=== PATIENT | male | born 1990 | race American Indian/Alaskan Native ===

== ENCOUNTER 2021-05-20 05:03 | Inpatient (IN) | payer SELFPAY ==
[2021-05-20 05:42] LABS: Basophils # (Auto) 0.1 K/mm3 (0.0-0.1); Basophils % (Auto) 0.9 % (0.0-1.8); Eosinophils # (Auto) 0.2 K/mm3 (0.0-0.4); Eosinophils % (Auto) 2.1 % (0.0-4.3); Hematocrit 41.5 % (35.5-45.6); Hemoglobin 14.2 gm/dl (11.8-15.2); Lymphocytes # (Auto) 2.1 K/mm3 (1.2-5.4); Lymphocytes % (Auto) 18.3 % (13.4-35.0); Mean Corpuscular HGB Conc 34 % (32-34); Mean Corpuscular Volume 82 fl (84-94); Monocytes # (Auto) 0.9 K/mm3 (0.0-0.8); Monocytes % (Auto) 7.9 % (0.0-7.3); Red Blood Count 5.05 M/mm3 (3.65-5.03); Red Cell Distribution Width 14.1 % (13.2-15.2)
[2021-05-20 05:43] LABS: Platelet Count 218 K/mm3 (140-440)
[2021-05-20 06:04] LABS: Alanine Aminotransferase 129 units/L (7-56); Albumin 4.5 g/dL (3.9-5); BUN/Creatinine Ratio 9; Blood Urea Nitrogen 12 mg/dL (9-20); Calcium 9.6 mg/dL (8.4-10.2); Hemolysis Index 2
--- NOTE | 2021-05-20 06:14 | XRay Report ---
CHEST 2 VIEWS INDICATION / CLINICAL INFORMATION: Chest Pain. COMPARISON: None available. FINDINGS: SUPPORT DEVICES: None. HEART / MEDIASTINUM: No significant abnormality. LUNGS / PLEURA: No significant pulmonary or pleural abnormality. No pneumothorax. ADDITIONAL FINDINGS: No significant additional findings. IMPRESSION: 1. No acute findings. Signer Name: Steven Segura MD Signed: 05/20/2021 6:10 AM Workstation Name: [id number]
[2021-05-20] MEDS ORDERED: oxyCODONE /ACETAMINOPHEN 5-325MG TAB PO ONE (06:55)
--- NOTE | 2021-05-20 07:07 | Emergency Department Report ---
ED Chest Pain HPI - General Chief Complaint: Chest Pain Stated Complaint: CHEST PAIN/SOB Time Seen by Provider: 05/20/21 06:39 Source: patient Mode of arrival: Ambulatory Limitations: No Limitations - History of Present Illness Initial Comments: 31-year-old -Gabonese male presents to the emergency department with a complaint of shortness of breath that worsens with exertion, and left-sided chest and flank pain. Patient says that he has been having shortness of breath with exercise, that is abnormal for him, over the past few weeks. Over the past week the patient has developed the chest and upper flank discomfort. The patient has a history of pulmonary embolism x3 but admits to noncompliance with anticoagulation and outpatient follow-up. He has never had an evaluation for a possible clotting disorder. He denies any tobacco use, illicit drug use, or alcohol use/abuse. He has not taken anything for his symptoms prior to presentation today. He denies any fever, cough, lower extremity swelling. No recent travel or sick contacts at home. Severity scale (0 -10): 10 - Related Data Home Medications Medication Instructions Recorded Confirmed Last Taken No Known Home Medications [No 05/20/21 05/20/21 Unknown Reported Home Medications] Allergies Allergy/AdvReac Type Severity Reaction Status Date / Time No Known Allergies Allergy Verified 05/20/21 05:18 Heart Score - HEART Score History: Slightly suspicious EKG: Non-specific Age: < 45 Risk factors: No known risk factors Troponin: < normal limit HEART Score: 1 - EKG Read Time Time EKG Completed: 05:07 EKG Read Time: 05:09 - Critical Actions Critical Actions: 0-3 pts:0.9-1.7%risk of adverse cardiac event.Candidate for discharge ED Review of Systems ROS: Stated complaint: CHEST PAIN/SOB Other details as noted in HPI Comment: All other systems reviewed and negative Constitutional: denies: chills, fever Eyes: denies: eye pain, vision change ENT: denies: ear pain, throat pain Respiratory: shortness of breath, SOB with exertion. denies: cough, orthopnea Cardiovascular: chest pain. denies: palpitations, edema Gastrointestinal: denies: nausea, vomiting Genitourinary: denies: dysuria, discharge Musculoskeletal: denies: back pain, arthralgia Skin: denies: rash, lesions Neurological: denies: headache, weakness ED Past Medical Hx - Past Medical History Previous Medical History?: Yes Additional medical history: PE X 3 - Surgical History Past Surgical History?: No - Medications Home Medications: Home Medications Medication Instructions Recorded Confirmed Last Taken Type No Known Home Medications [No 05/20/21 05/20/21 Unknown History Reported Home Medications] ED Physical Exam - General Limitations: No Limitations - Other Other exam information: GENERAL: The patient is well-developed well-nourished. HENT: Normocephalic. Atraumatic. Patient has moist mucous membranes. EYES: Extraocular motions are intact. NECK: Supple. Trachea is midline. CHEST/LUNGS: Clear to auscultation. No tachypnea or accessory muscle use. There is some reproducible left-sided chest wall tenderness to palpation without crepitus or deformity. HEART/CARDIOVASCULAR: Regular. There is mild tachycardia. There is no murmur. ABDOMEN: Abdomen is soft, nontender. Patient has normal bowel sounds. Obese habitus. SKIN: Skin is warm and dry. NEURO: The patient is awake, alert, and oriented. The patient is cooperative. The patient has no focal neurologic deficits. Normal speech. MUSCULOSKELETAL: There is no tenderness or deformity. There is no limitation range of motion. ED Course Vital Signs 05/20/21 05/20/21 05:15 09:18 Temperature 98.1 F Pulse Rate 113 H Respiratory 16 Rate Blood Pressure 112/72 [Right] O2 Sat by Pulse 94 98 Oximetry - Consultations Consultation #1: 05/20/21 09:[address] Quintero, vascular surgeon on-call, who says that he will evaluate the patient. NPO and IV Heparin for now. MICHEL score - Michel Score Age > 65: (0) No Aspirin use within the Past 7 Days: (0) No 3 or more CAD Risk Factors: (0) No 2 or more Angina events in past 24 hrs: (1) Yes Known CAD with more than 50% Stenosis: (0) No Elevated Cardiac Markers: (0) No ST Deviation Greater than 0.5mm: (0) No MICHEL Score: 1 ED Medical Decision Making - Lab Data Result diagrams: 05/20/21 Unknown 05/20/21 Unknown Lab Results 05/20/21 Range/Units 08:16 PT 14.1 (12.2-14.9) Sec. INR 0.98 (0.87-1.13) APTT 24.3 (24.2-36.6) Sec. Lab Results 05/20/21 Range/Units 08:16 PT 14.1 (12.2-14.9) Sec. INR 0.98 (0.87-1.13) APTT 24.3 (24.2-36.6) Sec. - EKG Data -: EKG Interpreted by Me EKG shows normal: sinus rhythm, axis, intervals, QRS complexes, ST-T waves (To move versions to the anteroseptal leads) Rate: tachycardia (111 bpm) - EKG Data When compared to previous EKG there are: previous EKG unavailable Interpretation: other (Sinus tachycardia 111 bpm, normal axis, normal intervals, T wave inversions to the anteroseptal leads. No ST elevation [place]) - Radiology Data Radiology results: report reviewed, image reviewed interpreted by me: Chest x-ray does not show any acute process. There are no pleural effusions, obvious pneumonia and there is no pneumothorax. CTA CHEST WITH CONTRAST INDICATION : Patient complains of chest pain, elevated D-dimer 100 ml omni 350 . TECHNIQUE: Axial imaging performed through the chest, with contrast bolus timing set to maximize opacification of the pulmonary arteries. Sagittal and coronal reformatted images. 3-plane MIP reformatted images were obtained. All CT scans at this location are performed using CT dose reduction for ALARA by means of automated exposure control. 100 mL of intravenous contrast administered. COMPARISON: None FINDINGS: Bolus: Contrast bolus timing is adequate. PTE: Bilateral pulmonary emboli are identified. There is moderate to large occlusive thrombus extending from the distal left main pulmonary artery to all lobes of the left lower lobe. Nonocclusive thrombus is identified in the second and third order branches leading to the right lower lobe and right upper lobe. Mediastinum: Heart size is within normal limits. The right ventricle is mildly dilated consistent with right heart strain. No pericardial effusion. The thoracic aorta and remaining mediastinal structures are unremarkable. No pathologic mediastinal adenopathy. Lungs: There is minimal patchy subpleural infiltration in the posterior left lower lobe. Otherwise the lungs are clear. Small layering left pleural effusion measures up to 1 cm in thickness. No pneumothorax. Bones: No significant abnormality. Upper abdomen: Moderate to severe diffuse fatty infiltration the liver is noted in the visualized upper abdomen. IMPRESSION: Positive for bilateral pulmonary emboli as described. Thrombus burden appears moderate with signs of right heart strain. Patchy infiltration in the left lower lobe and small left pleural effusion. Hepatic steatosis. - Medical Decision Making This patient presents with shortness of breath with exertion, left-sided chest and upper flank pain. He has a history of multiple previous PEs and is nonc ompliant with anticoagulation and outpatient follow-up. Labs have been mostly unremarkable except for a very elevated D-dimer level. The patient had a CT angiography of the chest that shows bilateral pulmonary embolism with a moderate to large clot burden and some mild right-sided heart strain. Vascular surgery contacted and consulted and the patient will go for an IVC filter. The patient will be admitted to the hospitalist service on a heparin drip and was accepted by Dr. Malloy. Critical Care Time: Yes Critical care time in (mins) excluding proc time.: 31 Critical care attestation.: If time is entered above; I have spent that time in minutes in the direct care of this critically ill patient, excluding procedure time. Critical care time was spent on this patient in doing his initial evaluation, multiple reevaluations, ordering and interpretation of labs and imaging, discussion with the radiologist, discussion with vascular surgery, IV heparin for anticoagulation of the bilateral pulmonary emboli, multiple discussions with the patient. Critical Care Time: 31 minutes ED Disposition Clinical Impression: Bilateral pulmonary embolism Disposition: ADMITTED INPATIENT Is pt being admited?: Yes Condition: Serious Time of Disposition: 08:51
[2021-05-20] MEDS ORDERED: HEPARIN 10,000 UNITS/10 ML VIAL IV ONE (08:06)
--- NOTE | 2021-05-20 08:08 | Cat Scan Report ---
CTA CHEST WITH CONTRAST INDICATION : Patient complains of chest pain, elevated D-dimer 100 ml omni 350 . TECHNIQUE: Axial imaging performed through the chest, with contrast bolus timing set to maximize opa cification of the pulmonary arteries. Sagittal and coronal reformatted images. 3-plane MIP reformatte d images were obtained. All CT scans at this location are performed using CT dose reduction for ALAR A by means of automated exposure control. 100 mL of intravenous contrast administered. COMPARISON: None FINDINGS: Bolus: Contrast bolus timing is adequate. PTE: Bilateral pulmonary emboli are identified. There is moderate to large occlusive thrombus extend ing from the distal left main pulmonary artery to all lobes of the left lower lobe. Nonocclusive thro mbus is identified in the second and third order branches leading to the right lower lobe and right u pper lobe. Mediastinum: Heart size is within normal limits. The right ventricle is mildly dilated consistent wi th right heart strain. No pericardial effusion. The thoracic aorta and remaining mediastinal structur es are unremarkable. No pathologic mediastinal adenopathy. Lungs: There is minimal patchy subpleural infiltration in the posterior left lower lobe. Otherwise t he lungs are clear. Small layering left pleural effusion measures up to 1 cm in thickness. No pneumot horax. Bones: No significant abnormality. Upper abdomen: Moderate to severe diffuse fatty infiltration the liver is noted in the visualized up per abdomen. IMPRESSION: Positive for bilateral pulmonary emboli as described. Thrombus burden appears moderate with signs of right heart strain. Patchy infiltration in the left lower lobe and small left pleural effusion. Hepatic steatosis. CRITICAL RESULT: Time of Discovery (UNIVERSITY ARCHIVIST/CDT): 0700 hours Time of Communication (UNIVERSITY ARCHIVIST/CDT): 0703 hours Licensed Practitioner Receiving Report: Dr. Godinez Read-Back Performed: Yes. Signer Name: Jt Joseph Jr, MD Signed: 05/20/2021 8:03 AM Workstation Name: [id number]
[2021-05-20 08:39] LABS: INR 0.98 (0.87-1.13); Partial Thromboplastin Time 24.3 Sec. (24.2-36.6)
[2021-05-20] MEDS ORDERED: ONDANSETRON 4 MG/2 ML INJ IV PRN (08:59)
[2021-05-20] MEDS ORDERED: ACETAMINOPHEN 325 MG TAB PO PRN ×2 (08:59)
[2021-05-20] MEDS ORDERED: traMADol 50 MG TAB PO PRN (08:59)
--- NOTE | 2021-05-20 08:59 | History and Physical Report ---
History of Present Illness Date of examination: 05/20/21 Date of admission: 05/20/21 Chief complaint: CP History of present illness: 31-year-old -Omani male presents to the emergency department with a complaint of shortness of breath that worsens with exertion, and left-sided chest and flank pain. Patient says that he has been having shortness of breath with exercise, that is abnormal for him, over the past few weeks. Over the past week the patient has developed the chest and upper flank discomfort. The patient has a history of pulmonary embolism x3 and admits to noncompliance with anticoagulation and outpatient follow-up. He has never had an evaluation for a possible clotting disorder. He denies any tobacco use, illicit drug use, or alcohol use/abuse. He has not taken anything for his symptoms prior to presentation today. He denies any fever, cough, lower extremity swelling. No recent travel or sick contacts at home. Past History Past Medical History: pulmonary embolism (X 3) Past Surgical History: No surgical history Social history: no significant social history Family history: no significant family history Medications and Allergies Allergies Allergy/AdvReac Type Severity Reaction Status Date / Time No Known Allergies Allergy Verified 05/20/21 05:18 Home Medications Medication Instructions Recorded Confirmed Last Taken Type No Known Home Medications [No 05/20/21 05/20/21 Unknown History Reported Home Medications] Active Meds: Active Medications Heparin Sodium/Sodium Chloride (Heparin/ 0.45% Nacl-25,000 Unit/500 Ml) 25,000 unit in 500 mls @ 39.463 mls/hr IV TITR MAYELIN; Protocol Review of Systems All systems: negative Exam - Constitutional Vitals: Temp Pulse Resp BP Pulse Ox 98.1 F 113 H 16 112/72 94 05/20/21 05:15 05/20/21 05:15 05/20/21 05:15 05/20/21 05:15 05/20/21 05:15 General appearance: Present: no acute distress, well-nourished - EENT Eyes: Present: PERRL ENT: hearing intact, clear oral mucosa - Neck Neck: Present: supple, normal ROM - Respiratory Respiratory effort: normal Respiratory: bilateral: CTA - Cardiovascular Heart Sounds: Present: S1 & S2. Absent: rub, click - Extremities Extremities: pulses symmetrical, No edema Peripheral Pulses: within normal limits - Abdominal General gastrointestinal: Present: soft, non-tender, non-distended, normal bowel sounds Male genitourinary: Present: normal - Integumentary Integumentary: Present: clear, warm, dry - Musculoskeletal Musculoskeletal: gait normal, strength equal bilaterally - Psychiatric Psychiatric: appropriate mood/affect, intact judgment & insight - Neurologic Neurologic: CNII-XII intact, moves all extremities HEART Score - HEART Score EKG: Non-specific Age: < 45 Risk factors: No known risk factors Troponin: Troponin T < 0.010 ng/mL (0.00-0.029) 05/20/21 Unknown Troponin: < normal limit Results - Labs CBC & Chem 7: 05/20/21 Unknown 05/20/21 Unknown Labs: Laboratory Last Values WBC 11.5 K/mm3 (4.5-11.0) H 05/20/21 Unknown RBC 5.05 M/mm3 (3.65-5.03) H 05/20/21 Unknown Hgb 14.2 gm/dl (11.8-15.2) 05/20/21 Unknown Hct 41.5 % (35.5-45.6) 05/20/21 Unknown MCV 82 fl (84-94) L 05/20/21 Unknown MCH 28 pg (28-32) 05/20/21 Unknown MCHC 34 % (32-34) 05/20/21 Unknown RDW 14.1 % (13.2-15.2) 05/20/21 Unknown Plt Count 218 K/mm3 (140-440) 05/20/21 Unknown Lymph % (Auto) 18.3 % (13.4-35.0) 05/20/21 Unknown [place] % (Auto) 7.9 % (0.0-7.3) H 05/20/21 Unknown Eos % (Auto) 2.1 % (0.0-4.3) 05/20/21 Unknown Baso % (Auto) 0.9 % (0.0-1.8) 05/20/21 Unknown Lymph # (Auto) 2.1 K/mm3 (1.2-5.4) 05/20/21 Unknown [place] # (Auto) 0.9 K/mm3 (0.0-0.8) H 05/20/21 Unknown Eos # (Auto) 0.2 K/mm3 (0.0-0.4) 05/20/21 Unknown Baso # (Auto) 0.1 K/mm3 (0.0-0.1) 05/20/21 Unknown Seg Neutrophils % 70.8 % (40.0-70.0) H 05/20/21 Unknown Seg Neutrophils # 8.2 K/mm3 (1.8-7.7) H 05/20/21 Unknown PT 14.1 Sec. (12.2-14.9) 05/20/21 08:16 INR 0.98 (0.87-1.13) 05/20/21 08:16 APTT 24.3 Sec. (24.2-36.6) 05/20/21 08:16 D-Dimer 5098.83 ng/mlDDU (0-234) H 05/20/21 Unknown Sodium 137 mmol/L (137-145) 05/20/21 Unknown Potassium 4.5 mmol/L (3.6-5.0) 05/20/21 Unknown Chloride 102.0 mmol/L (98-107) 05/20/21 Unknown Carbon Dioxide 20 mmol/L (22-30) L 05/20/21 Unknown Anion Gap 20 mmol/L 05/20/21 Unknown BUN 12 mg/dL (9-20) 05/20/21 Unknown Creatinine 1.3 mg/dL (0.8-1.3) 05/20/21 Unknown Estimated GFR > 60 ml/min 05/20/21 Unknown BUN/Creatinine Ratio 9 % 05/20/21 Unknown Glucose 140 mg/dL (75-100) H 05/20/21 Unknown Calcium 9.6 mg/dL (8.4-10.2) 05/20/21 Unknown Total Bilirubin 0.30 mg/dL (0.1-1.2) 05/20/21 Unknown AST 69 units/L (5-40) H 05/20/21 Unknown ALT 129 units/L (7-56) H 05/20/21 Unknown Alkaline Phosphatase 108 units/L (35-129) 05/20/21 Unknown Troponin T < 0.010 ng/mL (0.00-0.029) 05/20/21 Unknown Total Protein 8.5 g/dL (6.3-8.2) H 05/20/21 Unknown Albumin 4.5 g/dL (3.9-5) 05/20/21 Unknown Albumin/Globulin Ratio 1.1 % 05/20/21 Unknown Assessment and Plan Assessment and plan: Bilateral pulmonary embolism with right heart strain. 05/20/2021. The patient will be admitted to the hospital and started on IV anticoagulation with heparin. CT scan reveals right heart strain. Will check echocardiogram for further evaluation. Consult vascular surgery with Dr. Grove. Patient will also have further consultation with hematology for possible hypercoagulable work-up.
[2021-05-20] MEDS ORDERED: HYDROcodone/ACETAMINOPHEN 5-325 MG TAB PO PRN (09:00)
[2021-05-20] MEDS ORDERED: HEPARIN 10,000 UNITS/10 ML VIAL IV PRN ×2 (09:00)
[2021-05-20] MEDS ORDERED: MORPHINE 4 MG/1 ML INJ IV PRN (09:00)
[2021-05-20] MEDS ORDERED: HEPARIN 10,000 UNITS/10 ML VIAL IV SCH (09:00)
[2021-05-20] MEDS: HEPARIN/ 0.45% NACL DRIP 25,000 UNIT/500 ML BAG IV SCH (09:25)
[2021-05-20 09:54] LABS: Basophils % (Auto) 0.5 % (0.0-1.8); Eosinophils # (Auto) 0.2 K/mm3 (0.0-0.4); Eosinophils % (Auto) 1.9 % (0.0-4.3); Hematocrit 41.3 % (35.5-45.6); Hemoglobin 14.1 gm/dl (11.8-15.2); Lymphocytes # (Auto) 2.2 K/mm3 (1.2-5.4); Lymphocytes % (Auto) 21.3 % (13.4-35.0); Mean Corpuscular HGB Conc 34 % (32-34); Mean Corpuscular Volume 82 fl (84-94); Monocytes % (Auto) 9.8 % (0.0-7.3); Platelet Count 225 K/mm3 (140-440); Red Blood Count 5.02 M/mm3 (3.65-5.03); Red Cell Distribution Width 14.1 % (13.2-15.2)
[2021-05-20 10:14] LABS: BUN/Creatinine Ratio 9; Blood Urea Nitrogen 12 mg/dL (9-20); Calcium 9.3 mg/dL (8.4-10.2); Hemolysis Index 6
--- NOTE | 2021-05-20 10:52 | Consultation ---
History of Present Illness - Reason for Consult Consult date: 05/20/21 Thromboembolic disease - History of Present Illness Patient with a history of 3 prior pulmonary embolisms presents with a fourth pulmonary embolism. The patient has been treated at multiple outside hospitals. From each he had been discharged on anticoagulation however the patient has refused to take his anticoagulation. He complains of mild chest discomfort. Breathing easily and maintaining his saturation on room air. CT chest reviewed. Past History Past Medical History: pulmonary embolism (X 3) Past Surgical History: No surgical history Social history: no significant social history Family history: no significant family history Medications and Allergies Allergies Allergy/AdvReac Type Severity Reaction Status Date / Time No Known Allergies Allergy Verified 05/20/21 05:18 Home Medications Medication Instructions Recorded Confirmed Last Taken Type No Known Home Medications [No 05/20/21 05/20/21 Unknown History Reported Home Medications] Active Meds: Active Medications Acetaminophen (Acetaminophen 325 Mg Tab) 650 mg PO Q4H PRN PRN Reason: Pain MILD(1-3)/Fever >100.5/VANN Hydrocodone Bitart/Acetaminophen (Hydrocodone/Acetaminophen 5-325 Mg Tab) 2 each PO Q6H PRN PRN Reason: Pain, Moderate (4-6) Heparin Sodium (Porcine) (Heparin 10,000 Units/10 Ml Vial) 9,100 unit 70 unit/kg (9200 unit) IV ONCE@0900 [facility] Stop: 05/20/21 13:00 Last Admin: 05/20/21 09:25 Dose: 9,100 unit Documented by: Heparin Sodium (Porcine) (Heparin 10,000 Units/10 Ml Vial) 5,000 unit IV Q6H PRN PRN Reason: Anti-Xa Assay < 0.1 units/ml Heparin Sodium/Sodium Chloride (Heparin/ 0.45% Nacl-25,000 Unit/500 Ml) 25,000 unit in 500 mls @ 30 mls/hr IV TITR MAYELIN; Protocol Last Admin: 05/20/21 09:25 Dose: 1,500 units/hr, 30 mls/hr Documented by: Morphine Sulfate (Morphine 4 Mg/1 Ml Inj) 2 mg IV Q4H PRN PRN Reason: Pain , Severe (7-10) Ondansetron HCl (Ondansetron 4 Mg/2 Ml Inj) 4 mg IV Q8H PRN PRN Reason: Nausea And Vomiting Sodium Chloride (Sodium Chloride 0.9% 10 Ml Flush Syringe) 10 ml IV BID MAYELIN Last Admin: 05/20/21 09:29 Dose: 10 ml Documented by: Sodium Chloride (Sodium Chloride 0.9% 10 Ml Flush Syringe) 10 ml IV PRN PRN PRN Reason: LINE FLUSH Sodium Chloride (Sodium Chloride 0.9% 10 Ml Flush Syringe) 10 ml IV PRN PRN PRN Reason: LINE FLUSH Tramadol HCl (Tramadol 50 Mg Tab) 50 mg PO Q6H PRN PRN Reason: Pain, Moderate (4-6) Review of Systems All systems: negative Exam - Constitutional Vitals: Temp Pulse Resp BP Pulse Ox 98.1 F 113 H 16 112/72 98 05/20/21 05:15 05/20/21 05:15 05/20/21 05:15 05/20/21 05:15 05/20/21 09:18 General appearance: Present: no acute distress - EENT Eyes: Present: EOM intact ENT: hearing intact - Neck Neck: Present: supple, normal ROM - Respiratory Respiratory effort: normal - Extremities Extremities: No edema - Abdominal General gastrointestinal: Present: deferred Male genitourinary: Present: deferred - Rectal Rectal Exam: deferred - Musculoskeletal Musculoskeletal: strength equal bilaterally - Psychiatric Psychiatric: appropriate mood/affect, cooperative Results - Labs CBC & Chem 7: 05/20/21 Unknown 05/20/21 Unknown Labs: Abnormal lab results 05/20/21 05/20/21 05/20/21 Range/Units 09:27 09:27 Unknown WBC 11.5 H (4.5-11.0) K/mm3 RBC 5.05 H (3.65-5.03) M/mm3 MCV 82 L 82 L (84-94) fl [place] % (Auto) 9.8 H 7.9 H (0.0-7.3) % [place] # (Auto) 1.0 H 0.9 H (0.0-0.8) K/mm3 Seg Neutrophils % 70.8 H (40.0-70.0) % Seg Neutrophils # 8.2 H (1.8-7.7) K/mm3 D-Dimer (0-234) ng/mlDDU Sodium 136 L (137-145) mmol/L Carbon Dioxide 21 L (22-30) mmol/L Creatinine 1.4 H (0.8-1.3) mg/dL Glucose 116 H (75-100) mg/dL AST (5-40) units/L ALT (7-56) units/L Total Protein (6.3-8.2) g/dL 05/20/21 05/20/21 Range/Units Unknown Unknown WBC (4.5-11.0) K/mm3 RBC (3.65-5.03) M/mm3 MCV (84-94) fl [place] % (Auto) (0.0-7.3) % [place] # (Auto) (0.0-0.8) K/mm3 Seg Neutrophils % (40.0-70.0) % Seg Neutrophils # (1.8-7.7) K/mm3 D-Dimer 5098.83 H (0-234) ng/mlDDU Sodium (137-145) mmol/L Carbon Dioxide 20 L (22-30) mmol/L Creatinine (0.8-1.3) mg/dL Glucose 140 H (75-100) mg/dL AST 69 H (5-40) units/L ALT 129 H (7-56) units/L Total Protein 8.5 H (6.3-8.2) g/dL - Imaging and Cardiology CT scan - chest: image reviewed Assessment and Plan Patient with a history of multiple prior pulmonary emboli requiring hospitalization that continue to recur secondary to patient's complete noncompliance on anticoagulation. Patient has been discharged home on an ticoagulation for each of his prior pulmonary emboli however he did not want to take it secondary to the patient's youthful age and a desire to not be on a chronic lifelong medication. Had a lengthy discussion regarding the patient's eventual worsening heart failure and from recurrent PE. The [facility] will need [facility]C filter. We will continue to encourage the patient to take oral anticoagulation. Additionally, discussed multiple cost saving measures performed by manufacturers that may assist the patient if cost is a concern. Suspect that it is only he does not want to be on a long-term medication. However, despite placement of a filter the patient will need to be encouraged to resume his hospitalization to take oral anticoagulation on discharge. Currently on a heparin drip.
[2021-05-20] MEDS ORDERED: HEPARIN/NS 5000 UNIT/500ML 500 ML IR ONE (12:18)
[2021-05-20] MEDS ORDERED: HEPARIN 10,000 UNITS/10 ML VIAL ONE (12:18)
[2021-05-20] MEDS ORDERED: MIDAZOLAM 2 MG/2 ML INJ ONE (12:19)
[2021-05-20] MEDS ORDERED: SODIUM CHLORIDE 0.9% 250ML 250 ML ONE (12:19)
[2021-05-20] MEDS ORDERED: LIDOCAINE (2%) 20 MG/1 ML VIAL 20 ML MDV INFILTRATI ONE (12:19)
[2021-05-20] MEDS ORDERED: fentaNYL 100 MCG/2 ML INJ ONE (12:20)
--- NOTE | 2021-05-20 13:05 | Operative Report ---
Operative Report Operative Report: Exam: Ultrasound fluoroscopic guided placement of IVC filter Clinical indication: Patient with a history of at least for pulmonary embolism, unwilling to take anticoagulation Date: 05/20/2021 Procedure: Following an explanation of the risks, benefits and alternatives; written informed consent was obtained. The patient was brought to the angiographic suite and placed in supine position on the examination table. Initial ultrasound evaluation of the patient's right groin demonstrated a patent right common femoral vein with no intraluminal thrombus. The patient's right groin was prepped and draped in the usual sterile fashion. 1% lidocaine was used for anesthesia. Under ultrasound guidance, a 7 cm 18-gauge needle was advanced into the right common femoral vein. A 0.035 guidewire was advanced centrally. The needle was removed and a 5 [place] sheath placed. Contrast was injected through the sheath and imaging obtained in the IVC. The level of the lowest renal vein was at the superior endplate of L2. No intraluminal thrombus is identified. Appropriate size criteria is identified. Following serial dilation over the guidewire under fluoroscopy, a 10 [place] IVC filter introducer sheath and trocar were advanced over the guidewire under fluoroscopy. The trocar and guidewire were removed. The IVC filter was then advanced through the sheath and positioned with the tip at the inferior endplate of L2. Post placement imaging demonstrated satisfactory positioning with no significant tilt. The sheath was removed and hemostasis achieved in the groin using manual compression. A sterile dressing was applied. The patient tolerated the procedure well. There were no immediate postprocedure complications. A minimal amount of conscious sedation was utilized under the guidance of radiologic nursing. Continuous cardiopulmonary monitoring was utilized. Impression: Ultrasound and fluoroscopic guided placement of infrarenal IVC filter
--- NOTE | 2021-05-20 13:20 | Hem/Onc Consultation ---
History of Present Illness - Reason for Consult Consult date: 05/20/21 PE - History of Present Illness Heme consult note Televisit via tsrd CPT 85395 Dx: pulmonary embolism This is a 31yo male who presents to the ER with complaints of shortness of breath worse on exertion, left sided chest pain, and flank pain Pt states shortness of breath over the past few weeks but newly developed chest and upper flank pain Pt with past medical history of PE X3 and noncompliance with anticoagulant use and outpatient follow-up Last PE was 1 year ago States noncompliance with previous hematology recommendation of Eliquis or Xarelto Denies past medical history Denies previous RBC transfusion CTA reveals bilateral pulmonary embolism Currently on heparin gtt IVC filter placed 05/20/2021 due to recurrent clotting DATA REVIEWED BELOW WBC 11.5 Hgb 14.2 Hct 41.5 MCV 82 PLts 218 IMP: Recurrent clotting due to clotting tendency and noncompliance with anticoagulants Rule out sickle cell disease and clotting mutation disorder REC/PLAN: AM labs to include hgb electrophoresis, cardiolipin ab Recommend Lovenox and transition to Xarelto Laboratory Last Values WBC 11.5 K/mm3 (4.5-11.0) H 05/20/21 Unknown RBC 5.05 M/mm3 (3.65-5.03) H 05/20/21 Unknown Hgb 14.2 gm/dl (11.8-15.2) 05/20/21 Unknown Hct 41.5 % (35.5-45.6) 05/20/21 Unknown MCV 82 fl (84-94) L 05/20/21 Unknown MCH 28 pg (28-32) 05/20/21 Unknown MCHC 34 % (32-34) 05/20/21 Unknown RDW 14.1 % (13.2-15.2) 05/20/21 Unknown Plt Count 218 K/mm3 (140-440) 05/20/21 Unknown Lymph % (Auto) 18.3 % (13.4-35.0) 05/20/21 Unknown Randall % (Auto) 7.9 % (0.0-7.3) H 05/20/21 Unknown Eos % (Auto) 2.1 % (0.0-4.3) 05/20/21 Unknown Baso % (Auto) 0.9 % (0.0-1.8) 05/20/21 Unknown Lymph # (Auto) 2.1 K/mm3 (1.2-5.4) 05/20/21 Unknown Randall # (Auto) 0.9 K/mm3 (0.0-0.8) H 05/20/21 Unknown Eos # (Auto) 0.2 K/mm3 (0.0-0.4) 05/20/21 Unknown Baso # (Auto) 0.1 K/mm3 (0.0-0.1) 05/20/21 Unknown Seg Neutrophils % 70.8 % (40.0-70.0) H 05/20/21 Unknown Seg Neutrophils # 8.2 K/mm3 (1.8-7.7) H 05/20/21 Unknown PT 14.1 Sec. (12.2-14.9) 05/20/21 08:16 INR 0.98 (0.87-1.13) 05/20/21 08:16 APTT 24.3 Sec. (24.2-36.6) 05/20/21 08:16 D-Dimer 5098.83 ng/mlDDU (0-234) H 05/20/21 Unknown Sodium 137 mmol/L (137-145) 05/20/21 Unknown Potassium 4.5 mmol/L (3.6-5.0) 05/20/21 Unknown Chloride 102.0 mmol/L (98-107) 05/20/21 Unknown Carbon Dioxide 20 mmol/L (22-30) L 05/20/21 Unknown Anion Gap 20 mmol/L 05/20/21 Unknown BUN 12 mg/dL (9-20) 05/20/21 Unknown Creatinine 1.3 mg/dL (0.8-1.3) 05/20/21 Unknown Estimated GFR > 60 ml/min 05/20/21 Unknown BUN/Creatinine Ratio 9 % 05/20/21 Unknown Glucose 140 mg/dL (75-100) H 05/20/21 Unknown Calcium 9.6 mg/dL (8.4-10.2) 05/20/21 Unknown Total Bilirubin 0.30 mg/dL (0.1-1.2) 05/20/21 Unknown AST 69 units/L (5-40) H 05/20/21 Unknown ALT 129 units/L (7-56) H 05/20/21 Unknown Alkaline Phosphatase 108 units/L (35-129) 05/20/21 Unknown Troponin T < 0.010 ng/mL (0.00-0.029) 05/20/21 Unknown Total Protein 8.5 g/dL (6.3-8.2) H 05/20/21 Unknown Albumin 4.5 g/dL (3.9-5) 05/20/21 Unknown Albumin/Globulin Ratio 1.1 % 05/20/21 Unknown Past History Past Medical History: pulmonary embolism (X 3) Past Surgical History: No surgical history Social history: no significant social history Family history: no significant family history Medications and Allergies Allergies Allergy/AdvReac Type Severity Reaction Status Date / Time No Known Allergies Allergy Verified 05/20/21 05:18 Home Medications Medication Instructions Recorded Confirmed Last Taken Type No Known Home Medications [No 05/20/21 05/20/21 Unknown History Reported Home Medications] Active Meds: Active Medications Acetaminophen (Acetaminophen 325 Mg Tab) 650 mg PO Q4H PRN PRN Reason: Pain MILD(1-3)/Fever >100.5/VANN Hydrocodone Bitart/Acetaminophen (Hydrocodone/Acetaminophen 5-325 Mg Tab) 2 each PO Q6H PRN PRN Reason: Pain, Moderate (4-6) Heparin Sodium (Porcine) (Heparin 10,000 Units/10 Ml Vial) 5,000 unit IV Q6H PRN PRN Reason: Anti-Xa Assay < 0.1 units/ml Heparin Sodium/Sodium Chloride (Heparin/ 0.45% Nacl-25,000 Unit/500 Ml) 25,000 unit in 500 mls @ 30 mls/hr IV TITR MAYELIN; Protocol Last Admin: 05/20/21 09:25 Dose: 1,500 units/hr, 30 mls/hr Documented by: Morphine Sulfate (Morphine 4 Mg/1 Ml Inj) 2 mg IV Q4H PRN PRN Reason: Pain , Severe (7-10) Ondansetron HCl (Ondansetron 4 Mg/2 Ml Inj) 4 mg IV Q8H PRN PRN Reason: Nausea And Vomiting Sodium Chloride (Sodium Chloride 0.9% 10 Ml Flush Syringe) 10 ml IV BID [facility] Last Admin: 05/20/21 09:29 Dose: 10 ml Documented by: Sodium Chloride (Sodium Chloride 0.9% 10 Ml Flush Syringe) 10 ml IV PRN PRN PRN Reason: LINE FLUSH Sodium Chloride (Sodium Chloride 0.9% 10 Ml Flush Syringe) 10 ml IV PRN PRN PRN Reason: LINE FLUSH Tramadol HCl (Tramadol 50 Mg Tab) 50 mg PO Q6H PRN PRN Reason: Pain, Moderate (4-6) Exam - Constitutional Vitals: Last Vital Signs Temp 98.1 F 05/20/21 05:15 Pulse 113 H 05/20/21 05:15 Resp 16 05/20/21 05:15 BP 112/72 05/20/21 05:15 Pulse Ox 98 05/20/21 09:18 Results - Labs lab Results: Laboratory Results - last 24 hr 05/20/21 05/20/21 05/20/21 08:16 09:27 09:27 WBC 10.3 RBC 5.02 Hgb 14.1 Hct 41.3 MCV 82 L MCH 28 MCHC 34 RDW 14.1 Plt Count 225 Lymph % (Auto) 21.3 Randall % (Auto) 9.8 H Eos % (Auto) 1.9 Baso % (Auto) 0.5 Lymph # (Auto) 2.2 Randall # (Auto) 1.0 H Eos # (Auto) 0.2 Baso # (Auto) 0.0 Seg Neutrophils % 66.5 Seg Neutrophils # 6.8 PT 14.1 INR 0.98 APTT 24.3 D-Dimer Sodium 136 L Potassium 4.4 Chloride 101.5 Carbon Dioxide 21 L Anion Gap 18 BUN 12 Creatinine 1.4 H Estimated GFR > 60 BUN/Creatinine Ratio 9 Glucose 116 H Calcium 9.3 Total Bilirubin AST ALT Alkaline Phosphatase Troponin T Total Protein Albumin Albumin/Globulin Ratio 05/20/21 05/20/21 05/20/21 Unknown Unknown Unknown WBC 11.5 H RBC 5.05 H Hgb 14.2 Hct 41.5 MCV 82 L MCH 28 MCHC 34 RDW 14.1 Plt Count 218 Lymph % (Auto) 18.3 Randall % (Auto) 7.9 H Eos % (Auto) 2.1 Baso % (Auto) 0.9 Lymph # (Auto) 2.1 Randall # (Auto) 0.9 H Eos # (Auto) 0.2 Baso # (Auto) 0.1 Seg Neutrophils % 70.8 H Seg Neutrophils # 8.2 H PT INR APTT D-Dimer 5098.83 H Sodium 137 Potassium 4.5 Chloride 102.0 Carbon Dioxide 20 L Anion Gap 20 BUN 12 Creatinine 1.3 Estimated GFR > 60 BUN/Creatinine Ratio 9 Glucose 140 H Calcium 9.6 Total Bilirubin 0.30 AST 69 H ALT 129 H Alkaline Phosphatase 108 Troponin T < 0.010 Total Protein 8.5 H Albumin 4.5 Albumin/Globulin Ratio 1.1
--- NOTE | 2021-05-20 16:50 | Vascular Lab Report ---
DUPLEX DOPPLER LOWER EXTREMITY VEINS, BILATERAL INDICATION / CLINICAL INFORMATION: Status post IVC filter placement today, history of PTE TECHNIQUE: Duplex doppler imaging was performed through the veins of both lower extremities using radha ous compression and other maneuvers. COMPARISON: None available. FINDINGS: RIGHT COMMON FEMORAL VEIN: Negative. RIGHT FEMORAL VEIN: Negative. RIGHT POPLITEAL VEIN: Negative. RIGHT CALF VEINS: Negative. LEFT COMMON FEMORAL VEIN: Negative. LEFT FEMORAL VEIN: Negative. LEFT POPLITEAL VEIN: Negative. LEFT CALF VEINS: Negative. ADDITIONAL FINDINGS: None. IMPRESSION: No sonographic evidence for DVT in either lower extremity. Signer Name: Tj Malloy MD Signed: 05/20/2021 4:45 PM Workstation Name: [id number]
[2021-05-21] MEDS: HEPARIN/ 0.45% NACL DRIP 25,000 UNIT/500 ML BAG IV SCH (02:20)
[2021-05-21 05:13] LABS: Basophils # (Auto) 0.1 K/mm3 (0.0-0.1); Basophils % (Auto) 1.2 % (0.0-1.8); Eosinophils # (Auto) 0.2 K/mm3 (0.0-0.4); Eosinophils % (Auto) 2.1 % (0.0-4.3); Hematocrit 42.3 % (35.5-45.6); Hemoglobin 14.7 gm/dl (11.8-15.2); Lymphocytes # (Auto) 2.1 K/mm3 (1.2-5.4); Lymphocytes % (Auto) 19.3 % (13.4-35.0); Mean Corpuscular HGB Conc 35 % (32-34); Mean Corpuscular Volume 81 fl (84-94); Monocytes % (Auto) 9.2 % (0.0-7.3); Platelet Count 250 K/mm3 (140-440); Red Cell Distribution Width 13.9 % (13.2-15.2)
[2021-05-21 05:31] LABS: BUN/Creatinine Ratio 7; Blood Urea Nitrogen 10 mg/dL (9-20); Calcium 9.3 mg/dL (8.4-10.2); Hemolysis Index 1
--- NOTE | 2021-05-21 10:27 | Discharge Summary ---
Providers - Providers Date of Admission: 05/20/21 08:59 Date of discharge: 05/21/21 Attending physician: ANGÉLICA ELIZONDO 05/20/21 Consult to Cardiac Rehabilitation [CONS] Routine Reason For Exam: Phase I 05/20/21 09:00 Consult to Physician [CONS] Routine Comment: Consulting Provider: ROX DANIELLE Physician Instructions: Reason For Exam: PE 05/20/21 09:02 Consult to Physician [CONS] Routine Comment: Consulting Provider: AI MAHAJAN Physician Instructions: Reason For Exam: Bilateral PE with mild right heart strain 05/20/21 09:05 Consult to Physician [CONS] Routine Comment: Consulting Provider: TERESITA HUNT Physician Instructions: Reason For Exam: PE, hypercoagulable workup Hospitalization Reason for admission: PE Condition: Serious Hospital course: 31-year-old male who presented through the emergency department with complaints of chest pain and shortness of breath. Patient has a significant past medical history of 3 prior pulmonary embolisms and admitted this time with new diagnosis of a fourth pulmonary embolism. CTA of the chest revealed bilateral PE. Vascular surgery was consulted. The patient has been treated at multiple outside hospitals. From each he had been discharged on anticoagulation however the patient has refused to take his anticoagulation. The PEs continue to recur because of patient's noncompliance with anticoagulation. Patient has been discharged home on anticoagulation for each of his prior pulmonary emboli however he did not want to take it secondary to the patient's youthful age and a desire to not be on a chronic lifelong medication. Vascular surgery was consulted and had a lengthy discussion regarding the patient's eventual worsening heart failure and from recurrent PE. Vascular surgery also brought the patient to the [facility] and performed IVC filter placement. Vascular surgery along with myself encouraged the patient to take oral anticoagulation. Additionally, discussed multiple cost saving measures performed by manufacturers that may assist the patient if cost is a concern. Suspect that it is only he does not want to be on a long-term medication. However, despite placement of a filter the patient will need to be encouraged to resume his hospitalization to take oral anticoagulation on discharge. Case management will assist with medication today at discharge. I discussed the importance of anticoagulation and risk of if not compliant. The patient voiced understanding. Dedicated discharge time 35 minutes. Disposition: 01 HOME / SELF CARE / HOMELESS Final Discharge Diagnosis (Prints w/discharge instructions): Bilateral pulmonary embolism, medical noncompliance Core Measure Documentation - Palliative Care Palliative Care/ Comfort Measures: Not Applicable - Core Measures Any of the following diagnoses?: DVT/PE, none - VTE Discharge Requirements Deep Vein Thrombosis/Pulmonary Embolism Present on Admission: Yes Has pt received <5 days of overlap therapy or INR<2.0: No (eliquis) Anticoagulant overlap therapy prescribed at discharge: No Contraindication No Overlap Therapy order at DC: Not Indicated Exam - Constitutional Vitals: Temp Pulse Resp BP Pulse Ox 99.2 F 94 H 20 127/79 92 05/21/21 03:35 05/21/21 03:35 05/21/21 03:35 05/21/21 03:35 05/21/21 03:35 General appearance: Present: no acute distress, well-nourished - EENT Eyes: Present: PERRL ENT: hearing intact, clear oral mucosa - Neck Neck: Present: supple, normal ROM - Respiratory Respiratory effort: normal Respiratory: bilateral: CTA - Cardiovascular Heart Sounds: Present: S1 & S2. Absent: rub, click - Extremities Extremities: pulses symmetrical, No edema Peripheral Pulses: within normal limits - Abdominal General gastrointestinal: Present: soft, non-tender, non-distended, normal bowel sounds Male genitourinary: Present: normal - Integumentary Integumentary: Present: clear, warm, dry - Musculoskeletal Musculoskeletal: gait normal, strength equal bilaterally - Psychiatric Psychiatric: appropriate mood/affect, intact judgment & insight - Neurologic Neurologic: CNII-XII intact, moves all extremities Plan Activity: advance as tolerated Weight Bearing Status: Weight Bear as Tolerated Diet: regular Follow up with: MELINDA REAVES [Other] - 3-5 Days TERESITA HUNT MD [Staff Physician] - 7 Days Prescriptions: Apixaban [Eliquis] 5 mg PO BID #360 tablet Apixaban [Eliquis] 10 mg PO BID 7 Days tablet
[2021-05-21] MEDS ORDERED: MORPHINE 2 MG/1 ML INJ IV PRN (11:00)
[2021-05-21 13:01] VITALS: BP 150/87
[2021-05-25 22:21] LABS: Cardiolipin Ab IgA <2.0 APL-U/mL (<20.0); Cardiolipin Ab IgG <2.0 GPL-U/mL (<20.0); Cardiolipin Ab IgM <2.0 MPL-U/mL (<20.0)
--- NOTE | 2021-05-26 14:34 | Electrocardiograph Report ---
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
--- NOTE | 2021-05-26 14:45 | Electrocardiograph Report ---
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
[2021-06-13 10:56] LABS: Hemoglobin A2 Prime SEE SCANNED RESULT; Hemoglobin Barts SEE SCANNED RESULT; Hemoglobin E SEE SCANNED RESULT; Hemoglobin G SEE SCANNED RESULT; Hemoglobin Lepore SEE SCANNED RESULT; Hemoglobin O-Arab SEE SCANNED RESULT; IEF Confirm SEE SCANNED RESULT; Interpretation SEE SCANNED RESULT; Sickle Solubility Test SEE SCANNED RESULT
== END 2021-05-21 16:11 | disposition home or self-care (01) | DRG 176 ==
LOC: ED 05:03 → 4A 08:59
PROVIDERS: ADMIT Hospitalist; ATTEND Hospitalist
PROC: 06H03DZ Insertion of Intraluminal Device into Inferior Vena Cava, Percutaneous Approach (ICD-10-PCS; principal; 2021-05-20)
DX: I26.99 Other pulmonary embolism without acute cor pulmonale (principal); Z91.19 Patient's noncompliance with other medical treatment and regimen
CPT/HCPCS: 36415; 37191; 71046; 71275; 80048; 80053; 82962; 84484; 85014; 85018; 85025; 85379; 85520; 85610; 85730; 86147; 93005; 93306; 93970; G0378; C1880; J1644; J2250; J2270; J3010; J7050; Q9967